=== PATIENT | male | born 1975 | race Two or more races ===

== ENCOUNTER 2025-04-09 12:40 | Emergency (ER) | payer OTHER ==
[~2025-04-09] VITALS: Ht 160 cm; Wt 93.2 kg
[2025-04-09 12:50] VITALS: BP 147/91; PULSE 80; RESP 18; TEMP 98.1; O2SAT 98
[2025-04-09 14:26] LABS: GLUCOMETER DEV NAME(LOC) ERT.7; GLUCOSE,POINT OF CARE 92 MG/DL (70-110)
[2025-04-09 15:05] LABS: ANION GAP 6 mmol/L (8-16); CALCIUM, TOTAL 8.5 mg/dL (8.8-10.5); CARBON DIOXIDE 30 mmol/L (22-29); CHLORIDE 101 mmol/L (98-107); CREATININE 0.68 mg/dL (0.60-1.30); GLOMERULAR FILTR. RATE CALC > 60 mL/min (>60); GLUCOSE,RANDOM 82 mg/dL (70-110); SODIUM SERUM 137 mmol/L (136-145); UREA NITROGEN, BLOOD 4 mg/dL (7-18)
[2025-04-09 15:06] LABS: LIPASE 46 U/L (16-77)
[2025-04-09] MEDS: KETOROLAC TROMETHAMINE 60 MG/2 ML VIAL IM ONE (15:07)
[2025-04-09] MEDS: methocarbamoL 500 MG TABLET PO ONE (15:07)
[2025-04-09] MEDS: ACETAMINOPHEN 500 MG TABLET PO ONE (15:07)
[2025-04-09 15:12] LABS: B-TYPE NATRIURETIC PEPTIDE 6 pg/mL (0-100)
[2025-04-09 15:17] LABS: BASOPHILS % (AUTO) 0.6 % (0.0-2.0); EOSINOPHILS % (AUTO) 1.9 % (1.0-6.0); HEMATOCRIT 43.7 % (41-53); HEMOGLOBIN 14.6 g/dL (13.5-17.5); LYMPHOCYTES # (AUTO) 1.9 K/uL (1.0-4.8); LYMPHOCYTES % (AUTO) 17.3 % (22.0-44.0); MEAN CORPUSCULAR HEMOGLOBIN 29.8 pg (26.0-34.0); MEAN CORPUSCULAR HGB CONC 33.3 G/dL (31.0-37.0); MEAN CORPUSCULAR VOLUME 89 fL (80-100); MONOCYTES # (AUTO) 1.3 K/uL (0.1-1.0); MONOCYTES % (AUTO) 11.6 % (2.0-9.0); NEUTROPHILS # (AUTO) 7.6 K/uL (1.8-7.7); NEUTROPHILS % (AUTO) 68.6 % (40.0-70.0); PLATELET COUNT (AUTO) 161 K/uL (150-450); RED CELL DISTRIBUTION WIDTH 14.2 % (11.5-14.5)
[2025-04-09 15:25] LABS: TROPONIN I-HIGH SENSITIVITY 4 ng/L (<76)
== END 2025-04-09 18:34 ==
LOC: EMS 12:40
DX: G89.29 Other chronic pain (principal); M54.50 Low back pain, unspecified; I10 Essential (primary) hypertension; J45.909 Unspecified asthma, uncomplicated; E11.40 Type 2 diabetes mellitus with diabetic neuropathy, unspecified; R06.02 Shortness of breath
CPT/HCPCS: 99285; 74176; 71045; 80048; 82962 ×2; 83690; 83880; 84484; 85025; 85651; 86140; 93005; 96372; J1885; 36415-L1; 36415-TC

== ENCOUNTER 2025-05-06 14:31 | Inpatient (IN) | payer OTHER ==
[~2025-05-06] VITALS: Ht 160 cm; Wt 88.8 kg
[2025-05-06 15:36] LABS: GLUCOMETER DEV NAME(LOC) ER.7; GLUCOSE,POINT OF CARE 89 MG/DL (70-110)
[2025-05-06 19:08] LABS: BASOPHILS % (AUTO) 0.5 % (0.0-2.0); EOSINOPHILS % (AUTO) 0.6 % (1.0-6.0); HEMATOCRIT 41.5 % (41-53); HEMOGLOBIN 14.1 g/dL (13.5-17.5); LYMPHOCYTES # (AUTO) 2.8 K/uL (1.0-4.8); LYMPHOCYTES % (AUTO) 24.4 % (22.0-44.0); MEAN CORPUSCULAR HEMOGLOBIN 29.9 pg (26.0-34.0); MEAN CORPUSCULAR VOLUME 88 fL (80-100); MONOCYTES # (AUTO) 0.9 K/uL (0.1-1.0); MONOCYTES % (AUTO) 7.8 % (2.0-9.0); NEUTROPHILS # (AUTO) 7.7 K/uL (1.8-7.7); NEUTROPHILS % (AUTO) 66.7 % (40.0-70.0); PLATELET COUNT (AUTO) 236 K/uL (150-450); RED BLOOD CELL COUNT(AUTO) 4.72 MIL/uL (4.50-5.90); RED CELL DISTRIBUTION WIDTH 13.8 % (11.5-14.5); WHITE BLOOD COUNT (AUTO) 11.5 K/uL (4.5-11.0)
[2025-05-06 19:18] LABS: ANION GAP 7 mmol/L (8-16); CALCIUM, TOTAL 9.3 mg/dL (8.8-10.5); CARBON DIOXIDE 28 mmol/L (22-29); CHLORIDE 102 mmol/L (98-107); CREATININE 0.68 mg/dL (0.60-1.30); GLOMERULAR FILTR. RATE CALC > 60 mL/min (>60); GLUCOSE,RANDOM 122 mg/dL (70-110); POTASSIUM 3.7 mmol/L (3.5-5.1); SODIUM SERUM 137 mmol/L (136-145); UREA NITROGEN, BLOOD 7 mg/dL (7-18)
[2025-05-06 19:20] LABS: LIPASE 68 U/L (16-77)
[2025-05-06 19:29] LABS: LACTIC ACID 1.7 mmol/L (0.4-2.0); TROPONIN I-HIGH SENSITIVITY 5 ng/L (<76)
[2025-05-06 20:40] LABS: APPEARANCE,URINE CLEAR (CLEAR); BILIRUBIN,URINE NEGATIVE (NEGATIVE); COLOR,URINE COLORLESS (YELLOW); GLUCOSE, URINE (UA) NEGATIVE (NEGATIVE); KETONES,URINE NEGATIVE (NEGATIVE); LEUKOCYTE ESTERASE ,URINE NEGATIVE (NEGATIVE); NITRATE,URINE NEGATIVE (NEGATIVE); OCCULT BLOOD,URINE NEGATIVE (NEGATIVE); PH,URINE 7.5 (5.0-8.0); PH,URINE DRUG SCREEN 7.5 (5.0-8.0); PROTEIN,URINE NEGATIVE (NEGATIVE); SPECIFIC GRAVITIY, URINE 1.008 (1.003-1.030); UROBILINOGEN,URINE <=1.0 mg/dL (<=1.0)
[2025-05-06 20:51] LABS: AMPHET/METH SCREEN,URINE NEGATIVE (NEGATIVE); BACTERIA,URINE None Seen /HPF (None Seen); BARBITURATE SCREEN, URINE NEGATIVE (NEGATIVE); BENZODIAZEPINES SCREEN,URINE NEGATIVE (NEGATIVE); CANNABINOID SCREEN,URINE NEGATIVE (NEGATIVE); COCAINE SCREEN,URINE NEGATIVE (NEGATIVE); METHADONE SCREEN, URINE NEGATIVE (NEGATIVE); OPIATE SCREEN,URINE NEGATIVE (NEGATIVE); PHENCYCLIDINE SCREEN,URINE NEGATIVE (NEGATIVE); RBC,URINE 0-2 /HPF (0-2); SQUAMOUS EPITHELIAL CELL,UR Rare /LPF (None Seen); WBC,URINE 0-2 /HPF (0-5)
[2025-05-06 20:52] LABS: ALCOHOL, URINE DRUG SCREEN NEGATIVE (NEGATIVE)
[2025-05-06] MEDS ORDERED: ONDANSETRON HCL 4 MG/2 ML VIAL IVP PRN (21:00)
[2025-05-06] MEDS ORDERED: DEXAMETHASONE SOD PHOS 4 MG/ML 5 ML VIAL IVP ONE (21:00)
[2025-05-06] MEDS: DOCUSATE SODIUM 100 MG CAPSULE PO SCH (21:00)
[2025-05-06 23:22] VITALS: BP 134/91; PULSE 91; RESP 18; TEMP 98.5; O2SAT 97
[2025-05-07] MEDS ORDERED: LEVE100S7 PO (00:45)
[2025-05-07] MEDS ORDERED: ARIP20TA PO (00:45)
[2025-05-07] MEDS ORDERED: DULO-77 PO (00:45)
[2025-05-07] MEDS ORDERED: AMLO-517 PO (00:45)
[2025-05-07] MEDS ORDERED: LEVA15HF3 PO (00:45)
[2025-05-07] MEDS ORDERED: SIME80TA12 PO (00:45)
[2025-05-07] MEDS ORDERED: ACET650S14 PR (00:45)
[2025-05-07] MEDS ORDERED: TAMS0.4C94 PO (00:45)
[2025-05-07] MEDS ORDERED: ATOR10TA69 PO (00:45)
[2025-05-07] MEDS ORDERED: EMPA10TA3 PO (00:45)
[2025-05-07] MEDS ORDERED: IBUP-2492 PO (00:45)
[2025-05-07] MEDS ORDERED: METF-81 PO (00:45)
[2025-05-07] MEDS ORDERED: MIRT-149 PO (00:45)
[2025-05-07] MEDS ORDERED: FAMO20 PO (00:45)
[2025-05-07] MEDS ORDERED: INSREG SQ (00:45)
[2025-05-07] MEDS ORDERED: LIDO15CR15 TP (00:45)
[2025-05-07] MEDS ORDERED: SEMA2PEN SQ (00:45)
[2025-05-07] MEDS ORDERED: LACO100T14 PO ×2 (00:45)
[2025-05-07] MEDS: HEPARIN SODIUM,PORCINE 5,000 UNITS/ML VIAL SQ SCH (01:14)
[2025-05-07] MEDS: DEXAMETHASONE SOD PHOS 10 MG/ML VIAL IVP ONE (01:15)
[2025-05-07 05:08] VITALS: BP 121/78; PULSE 86; RESP 18; TEMP 98.6; O2SAT 99
[2025-05-07] MEDS ORDERED: SIMETHICONE 80 MG CHEWABLE TABLET PO PRN (06:15)
[2025-05-07] MEDS ORDERED: DEXTROSE 50%-WATER 25 GM/50 ML SYRINGE IVP PRN (06:15)
[2025-05-07] MEDS: INSULIN LISPRO 100 UNITS/ML SQ PRN (06:19)
[2025-05-07] MEDS: SODIUM CHLORIDE 0.9% 1,000 ML IV ONE (06:19)
[2025-05-07 07:03] LABS: ANION GAP 7 mmol/L (8-16); CARBON DIOXIDE 25 mmol/L (22-29); CHLORIDE 102 mmol/L (98-107); GLOMERULAR FILTR. RATE CALC > 60 mL/min (>60); GLUCOSE,RANDOM 293 mg/dL (70-110); POTASSIUM 4.1 mmol/L (3.5-5.1); SODIUM SERUM 134 mmol/L (136-145); UREA NITROGEN, BLOOD 9 mg/dL (7-18)
[2025-05-07 07:15] LABS: BASOPHILS % (AUTO) 0.4 % (0.0-2.0); EOSINOPHILS % (AUTO) 0 % (1.0-6.0); HEMATOCRIT 41.9 % (41-53); HEMOGLOBIN 14.4 g/dL (13.5-17.5); LYMPHOCYTES # (AUTO) 0.6 K/uL (1.0-4.8); LYMPHOCYTES % (AUTO) 7.5 % (22.0-44.0); MEAN CORPUSCULAR HEMOGLOBIN 30.5 pg (26.0-34.0); MEAN CORPUSCULAR HGB CONC 34.4 G/dL (31.0-37.0); MEAN CORPUSCULAR VOLUME 89 fL (80-100); MONOCYTES # (AUTO) 0.2 K/uL (0.1-1.0); MONOCYTES % (AUTO) 1.9 % (2.0-9.0); NEUTROPHILS # (AUTO) 7.6 K/uL (1.8-7.7); PLATELET COUNT (AUTO) 221 K/uL (150-450); RED BLOOD CELL COUNT(AUTO) 4.73 MIL/uL (4.50-5.90); RED CELL DISTRIBUTION WIDTH 13.6 % (11.5-14.5); WHITE BLOOD COUNT (AUTO) 8.5 K/uL (4.5-11.0)
[2025-05-07 07:23] LABS: NEUTROPHILS % (AUTO) 90.2 % (40.0-70.0); RBC MORPHOLOGY COMMENT NORMAL RBC MORPH
[2025-05-07] MEDS: PIPERACILLIN/TAZO 3.375 GM/D5W 50 ML IV SCH (07:45)
[2025-05-07] MEDS: VANCOMYCIN 1.5 GM/WATER(PEG) 300 ML IV ONE (07:45)
[2025-05-07 08:41] VITALS: BP 139/88; PULSE 76; RESP 19; TEMP 97.5; O2SAT 98
[2025-05-07] MEDS: TAMSULOSIN HCL 0.4 MG CAPSULE PO SCH (09:00)
[2025-05-07] MEDS: ATORVASTATIN CALCIUM 10 MG TABLET PO SCH (09:00)
[2025-05-07] MEDS: LevETIRAcetam 500 MG TABLET PO SCH (09:00)
[2025-05-07] MEDS: AmLODIPine BESYLATE 10 MG TABLET PO SCH (09:02)
[2025-05-07] MEDS: OLMESARTAN MEDOXOMIL 20 MG TABLET PO SCH (09:03)
[2025-05-07] MEDS: LACOSAMIDE 100 MG TABLET PO SCH ×2 (09:03→16:32)
[2025-05-07] MEDS ORDERED: DULO30CA89 PO (10:55)
[2025-05-07] MEDS ORDERED: ACET-2247 PO (10:57)
[2025-05-07] MEDS: DULoxetine HCL 30 MG CAPSULE PO SCH (11:00)
[2025-05-07 11:23] VITALS: BP 128/74; PULSE 78; RESP 18; TEMP 98.1; O2SAT 97
[2025-05-07 11:26] LABS: GLUCOMETER DEV NAME(LOC) 5S.1D; GLUCOSE,POINT OF CARE 284 MG/DL (70-110)
[2025-05-07 12:45] LABS: GLUCOMETER DEV NAME(LOC) 5N.2C; GLUCOSE,POINT OF CARE 323 MG/DL (70-110)
[2025-05-07] MEDS: INSULIN LISPRO 100 UNITS/ML SQ SCH (13:14)
[2025-05-07 15:52] VITALS: BP 132/80; PULSE 74; RESP 19; TEMP 98.2; O2SAT 98
[2025-05-07] MEDS ORDERED: VANCOMYCIN 1.25 GM/WATER(PEG) 250 ML IV SCH (16:00)
[2025-05-07 18:25] LABS: GLUCOMETER DEV NAME(LOC) 5S.1D; GLUCOSE,POINT OF CARE 317 MG/DL (70-110)
[2025-05-07 20:33] VITALS: BP 133/75; PULSE 83; RESP 18; TEMP 97.5; O2SAT 99
[2025-05-07] MEDS: MIRTAZAPINE 15 MG TABLET PO SCH (20:39)
[2025-05-07] MEDS: INSULIN GLARGINE,HUM.REC.ANLOG 100 UNITS/ML SQ SCH (21:00)
[2025-05-08 00:20] VITALS: BP 122/82; PULSE 81; RESP 18; TEMP 98; O2SAT 99
[2025-05-08 04:00] VITALS: BP 126/87; PULSE 83; RESP 18; TEMP 97.7; O2SAT 98
[2025-05-08 05:36] LABS: GLUCOMETER DEV NAME(LOC) 5N.2C; GLUCOSE,POINT OF CARE 303 MG/DL (70-110)
[2025-05-08 06:40] LABS: GLUCOMETER DEV NAME(LOC) 5S.1D; GLUCOSE,POINT OF CARE 281 MG/DL (70-110)
[2025-05-08 07:31] LABS: ANION GAP 8 mmol/L (8-16); CALCIUM, TOTAL 9.1 mg/dL (8.8-10.5); CARBON DIOXIDE 26 mmol/L (22-29); CHLORIDE 103 mmol/L (98-107); CREATININE 0.74 mg/dL (0.60-1.30); GLOMERULAR FILTR. RATE CALC > 60 mL/min (>60); GLUCOSE,RANDOM 280 mg/dL (70-110); POTASSIUM 4.3 mmol/L (3.5-5.1); SODIUM SERUM 137 mmol/L (136-145); UREA NITROGEN, BLOOD 12 mg/dL (7-18)
[2025-05-08 08:40] VITALS: BP 127/86; PULSE 77; RESP 18; TEMP 98.1; O2SAT 97
[2025-05-08 09:44] LABS: PROTHROMBIN TIME 10.8 SEC (9.4-11.6)
[2025-05-08] MEDS ORDERED: MIDAZOLAM HCL 2 MG/2 ML VIAL ONE ×2 (09:46→10:14)
[2025-05-08] MEDS ORDERED: FentaNYL CITRATE PF 100 MCG/2 ML VIAL ONE ×2 (09:46→10:14)
[2025-05-08] MEDS ORDERED: LIDOCAINE/PF 1% 30 ML VIAL ONE (09:47)
[2025-05-08] MEDS ORDERED: DiphenhydrAMINE HCL 50 MG/ML VIAL ONE (10:18)
[2025-05-08 11:46] VITALS: BP 105/73; PULSE 80; RESP 18; TEMP 97.7; O2SAT 97
[2025-05-08] MEDS: DiphenhydrAMINE HCL 50 MG/ML VIAL IVP ONE (11:46)
[2025-05-08] MEDS: FentaNYL CITRATE PF 100 MCG/2 ML VIAL IVP ONE ×3 (11:46→11:48)
[2025-05-08] MEDS: MIDAZOLAM HCL 2 MG/2 ML VIAL IVP ONE ×3 (11:47→11:48)
[2025-05-08 13:41] LABS: GLUCOMETER DEV NAME(LOC) 5N.2C; GLUCOSE,POINT OF CARE 106 MG/DL (70-110)
[2025-05-08 16:27] VITALS: BP 105/68; PULSE 97; RESP 18; TEMP 98.2; O2SAT 96
[2025-05-08 20:17] VITALS: BP 124/80; PULSE 96; RESP 19; TEMP 98.6; O2SAT 95
[2025-05-08 21:56] LABS: GLUCOMETER DEV NAME(LOC) 5N.2C; GLUCOSE,POINT OF CARE 385 MG/DL (70-110)
[2025-05-08 22:51] LABS: GLUCOMETER DEV NAME(LOC) 5S.1D; GLUCOSE,POINT OF CARE 347 MG/DL (70-110)
[2025-05-09] MEDS: ACETAMINOPHEN 325 MG TABLET PO PRN (00:37)
[2025-05-09 00:47] VITALS: BP 113/63; PULSE 104; RESP 20; TEMP 98.4; O2SAT 96
[2025-05-09 06:04] VITALS: BP 130/72; PULSE 76; RESP 20; TEMP 98.1; O2SAT 97
[2025-05-09 07:17] LABS: ANION GAP 7 mmol/L (8-16); CALCIUM, TOTAL 8.6 mg/dL (8.8-10.5); CARBON DIOXIDE 26 mmol/L (22-29); CHLORIDE 102 mmol/L (98-107); CREATININE 0.74 mg/dL (0.60-1.30); GLOMERULAR FILTR. RATE CALC > 60 mL/min (>60); GLUCOSE,RANDOM 298 mg/dL (70-110); POTASSIUM 4.1 mmol/L (3.5-5.1); SODIUM SERUM 135 mmol/L (136-145); UREA NITROGEN, BLOOD 14 mg/dL (7-18)
[2025-05-09] MEDS: AmLODIPine BESYLATE 5 MG TABLET PO SCH (08:16)
[2025-05-09 08:56] VITALS: BP 120/79; PULSE 90; RESP 19; TEMP 97.5; O2SAT 98
[2025-05-09 11:39] VITALS: BP 115/78; PULSE 82; RESP 19; TEMP 98.2; O2SAT 98
[2025-05-09 11:46] LABS: GLUCOMETER DEV NAME(LOC) 5N.2C; GLUCOSE,POINT OF CARE 278 MG/DL (70-110)
[2025-05-09 15:55] VITALS: BP 117/74; PULSE 90; RESP 20; TEMP 98.4; O2SAT 99
[2025-05-09 17:26] LABS: GLUCOMETER DEV NAME(LOC) 5S.1D; GLUCOSE,POINT OF CARE 298 MG/DL (70-110)
[2025-05-09 20:00] VITALS: BP 115/85; PULSE 85; RESP 19; TEMP 98.4; O2SAT 100
[2025-05-09 20:20] LABS: GLUCOMETER DEV NAME(LOC) 5N.2C; GLUCOSE,POINT OF CARE 246 MG/DL (70-110)
[2025-05-10] VITALS (7 sets, daily range): BP systolic 111–140; BP diastolic 67–92; PULSE 79–92; RESP 18–20; TEMP 98.2–99.5; O2SAT 95–100
[2025-05-10 04:51] LABS: GLUCOMETER DEV NAME(LOC) 5S.1D; GLUCOSE,POINT OF CARE 267 MG/DL (70-110)
[2025-05-10 07:46] LABS: GLUCOMETER DEV NAME(LOC) 5N.2C; GLUCOSE,POINT OF CARE 248 MG/DL (70-110)
[2025-05-10 11:26] LABS: GLUCOMETER DEV NAME(LOC) 5N.2C; GLUCOSE,POINT OF CARE 287 MG/DL (70-110)
[2025-05-10 11:56] LABS: GLUCOMETER DEV NAME(LOC) 5S.2D; GLUCOSE,POINT OF CARE 415 MG/DL (70-110)
[2025-05-10] MEDS ORDERED: BISMUTH SUBSALICYLATE 525 MG/30 ML SUSPENSION UDCUP PO PRN (14:45)
[2025-05-10 17:35] LABS: GLUCOMETER DEV NAME(LOC) 5S.1D; GLUCOSE,POINT OF CARE 400 MG/DL (70-110)
[2025-05-10] MEDS: INSULIN GLARGINE,HUM.REC.ANLOG 100 UNITS/ML SQ SCH (20:59)
[2025-05-11] VITALS: BP 134/85; PULSE 86; RESP 18; TEMP 98.4; O2SAT 99
[2025-05-11 04:00] VITALS: BP 125/81; PULSE 82; RESP 18; TEMP 98.2; O2SAT 99
[2025-05-11 06:25] LABS: GLUCOMETER DEV NAME(LOC) 5S.1D; GLUCOSE,POINT OF CARE 324 MG/DL (70-110)
[2025-05-11 08:20] LABS: GLUCOMETER DEV NAME(LOC) 5S.2D; GLUCOSE,POINT OF CARE 268 MG/DL (70-110)
[2025-05-11 08:20] LABS: GLUCOMETER DEV NAME(LOC) 5S.2D; GLUCOSE,POINT OF CARE 371 MG/DL (70-110)
[2025-05-11 09:24] VITALS: BP 146/100; PULSE 85; RESP 18; TEMP 98.1; O2SAT 95
[2025-05-11 11:56] LABS: GLUCOMETER DEV NAME(LOC) 5S.1D; GLUCOSE,POINT OF CARE 309 MG/DL (70-110)
[2025-05-11 17:26] LABS: GLUCOMETER DEV NAME(LOC) 5N.2C; GLUCOSE,POINT OF CARE 268 MG/DL (70-110)
[2025-05-11 19:58] VITALS: BP 130/82; PULSE 99; RESP 18; TEMP 98.2; O2SAT 95
[2025-05-11] MEDS: INSULIN GLARGINE,HUM.REC.ANLOG 100 UNITS/ML SQ SCH (20:19)
[2025-05-12] VITALS (8 sets, daily range): BP systolic 122–147; BP diastolic 79–89; PULSE 64–91; RESP 17–19; TEMP 97.3–98.4; O2SAT 95–100
[2025-05-12 02:26] LABS: GLUCOMETER DEV NAME(LOC) 5S.2D; GLUCOSE,POINT OF CARE 333 MG/DL (70-110)
[2025-05-12 06:55] LABS: BASOPHILS % (AUTO) 0.5 % (0.0-2.0); EOSINOPHILS % (AUTO) 2.3 % (1.0-6.0); HEMATOCRIT 42.9 % (41-53); HEMOGLOBIN 14.8 g/dL (13.5-17.5); LYMPHOCYTES # (AUTO) 2.6 K/uL (1.0-4.8); LYMPHOCYTES % (AUTO) 25.8 % (22.0-44.0); MEAN CORPUSCULAR HEMOGLOBIN 30.4 pg (26.0-34.0); MEAN CORPUSCULAR HGB CONC 34.5 G/dL (31.0-37.0); MEAN CORPUSCULAR VOLUME 88 fL (80-100); MONOCYTES # (AUTO) 0.8 K/uL (0.1-1.0); MONOCYTES % (AUTO) 7.6 % (2.0-9.0); NEUTROPHILS # (AUTO) 6.5 K/uL (1.8-7.7); NEUTROPHILS % (AUTO) 63.8 % (40.0-70.0); PLATELET COUNT (AUTO) 205 K/uL (150-450); RED BLOOD CELL COUNT(AUTO) 4.87 MIL/uL (4.50-5.90); RED CELL DISTRIBUTION WIDTH 13.4 % (11.5-14.5); WHITE BLOOD COUNT (AUTO) 10.2 K/uL (4.5-11.0)
[2025-05-12] MEDS: LIDOCAINE 5% 36 GM OINTMENT TP PRN (08:32)
[2025-05-12 10:56] LABS: GLUCOMETER DEV NAME(LOC) 5S.1D; GLUCOSE,POINT OF CARE 237 MG/DL (70-110)
[2025-05-12 11:21] LABS: GLUCOMETER DEV NAME(LOC) 5S.1D; GLUCOSE,POINT OF CARE 355 MG/DL (70-110)
[2025-05-12 12:31] LABS: GLUCOMETER DEV NAME(LOC) 5N.2C; GLUCOSE,POINT OF CARE 272 MG/DL (70-110)
[2025-05-12 17:26] LABS: GLUCOMETER DEV NAME(LOC) 5S.1D; GLUCOSE,POINT OF CARE 151 MG/DL (70-110)
[2025-05-12] MEDS: INSULIN GLARGINE,HUM.REC.ANLOG 100 UNITS/ML SQ SCH (21:06)
[2025-05-12] MEDS: HYDROCODONE/ACETAMINOPHEN 5-325 MG TABLET PO ONE (23:21)
[2025-05-13 03:55] VITALS: BP 124/83; PULSE 80; RESP 18; TEMP 98.2; O2SAT 98
[2025-05-13 05:41] LABS: GLUCOMETER DEV NAME(LOC) 5S.2D; GLUCOSE,POINT OF CARE 350 MG/DL (70-110)
[2025-05-13 07:59] VITALS: BP 120/88; PULSE 81; RESP 18; TEMP 97.7; O2SAT 98
[2025-05-13 08:11] LABS: GLUCOMETER DEV NAME(LOC) 5S.2D; GLUCOSE,POINT OF CARE 191 MG/DL (70-110)
[2025-05-13 08:11] LABS: GLUCOMETER DEV NAME(LOC) 5S.2D; GLUCOSE,POINT OF CARE 260 MG/DL (70-110)
[2025-05-13 10:49] LABS: ANION GAP 9 mmol/L (8-16); CALCIUM, TOTAL 9.1 mg/dL (8.8-10.5); CARBON DIOXIDE 27 mmol/L (22-29); CHLORIDE 97 mmol/L (98-107); CREATININE 0.67 mg/dL (0.60-1.30); GLOMERULAR FILTR. RATE CALC > 60 mL/min (>60); GLUCOSE,RANDOM 312 mg/dL (70-110); POTASSIUM 4.2 mmol/L (3.5-5.1); SODIUM SERUM 133 mmol/L (136-145); UREA NITROGEN, BLOOD 12 mg/dL (7-18)
[2025-05-13 19:54] VITALS: BP 135/89; PULSE 91; RESP 18; TEMP 98.2; O2SAT 95
[2025-05-13] MEDS: MORPHINE SULFATE 2 MG/ML SYRINGE IVP ONE (20:27)
[2025-05-13 20:53] LABS: TROPONIN I-HIGH SENSITIVITY Less Than 4 ng/L (<76)
[2025-05-13] MEDS ORDERED: INSULIN GLARGINE,HUM.REC.ANLOG 100 UNITS/ML SQ SCH (21:00)
[2025-05-13] MEDS: MIRTAZAPINE 15 MG TABLET PO SCH (21:00)
[2025-05-13] MEDS: INSULIN GLARGINE,HUM.REC.ANLOG 100 UNITS/ML SQ SCH (21:03)
[2025-05-14] VITALS (7 sets, daily range): BP systolic 127–142; BP diastolic 76–97; PULSE 80–101; RESP 17–19; TEMP 97.5–98.4; O2SAT 95–99
[2025-05-14 05:46] LABS: GLUCOMETER DEV NAME(LOC) 5S.1D; GLUCOSE,POINT OF CARE 296 MG/DL (70-110)
[2025-05-14 10:11] LABS: GLUCOMETER DEV NAME(LOC) 5S.1D; GLUCOSE,POINT OF CARE 323 MG/DL (70-110)
[2025-05-14 12:35] LABS: GLUCOMETER DEV NAME(LOC) 5S.2D; GLUCOSE,POINT OF CARE 254 MG/DL (70-110)
[2025-05-14] MEDS: KETOROLAC TROMETHAMINE 15 MG/ML VIAL IVP PRN (12:51)
[2025-05-14 19:05] LABS: GLUCOMETER DEV NAME(LOC) 5S.1D; GLUCOSE,POINT OF CARE 302 MG/DL (70-110)
[2025-05-14] MEDS: INSULIN GLARGINE,HUM.REC.ANLOG 100 UNITS/ML SQ SCH (20:22)
[2025-05-14] MEDS: CYCLOBENZAPRINE HCL 10 MG TABLET PO PRN (22:25)
[2025-05-15 01:21] LABS: GLUCOMETER DEV NAME(LOC) 6N.2B; GLUCOSE,POINT OF CARE 273 MG/DL (70-110)
[2025-05-15 04:38] VITALS: BP 131/85; PULSE 100; RESP 20; TEMP 98.1; O2SAT 100
[2025-05-15 06:40] LABS: GLUCOMETER DEV NAME(LOC) 6S.1D; GLUCOSE,POINT OF CARE 218 MG/DL (70-110)
[2025-05-15 08:08] VITALS: BP 113/89; PULSE 99; RESP 18; TEMP 99; O2SAT 100
[2025-05-15] MEDS ORDERED: MIDAZOLAM HCL 2 MG/2 ML VIAL ONE (08:54)
[2025-05-15] MEDS ORDERED: LIDOCAINE/PF 1% 30 ML VIAL ONE (08:54)
[2025-05-15] MEDS ORDERED: FentaNYL CITRATE PF 100 MCG/2 ML VIAL ONE (08:54)
[2025-05-15] MEDS: TraMADol HCL 50 MG TABLET PO PRN (11:38)
[2025-05-15] MEDS ORDERED: ALBUTEROL SULFATE HFA 90 MCG/PUFF 8 GM INHALER IH PRN (12:30)
[2025-05-15] MEDS: CefTRIAXone SODIUM 2 GM in DEXTROSE 5%-WATER 50 ML IV SCH (15:32)
[2025-05-15] MEDS ORDERED: SODIUM CHLORIDE 0.9% 500 ML IV ONE (15:33)
[2025-05-15] MEDS: VANCOMYCIN 1.25 GM/WATER(PEG) 250 ML IV SCH (17:03)
[2025-05-15] MEDS: MetFORMIN HCL 850 MG TABLET PO SCH (18:06)
[2025-05-15 19:56] VITALS: BP 128/90; PULSE 94; RESP 18; TEMP 98.1; O2SAT 98
[2025-05-15 21:05] LABS: GLUCOMETER DEV NAME(LOC) 6S.1D; GLUCOSE,POINT OF CARE 303 MG/DL (70-110)
[2025-05-16 04:33] VITALS: BP 124/84; PULSE 86; RESP 18; TEMP 98; O2SAT 97
[2025-05-16 07:02] LABS: ALANINE AMINOTRANSFERASE 24 U/L (12-78); ALBUMIN 3.1 g/dL (3.4-5.0); ALKALINE PHOSPHATASE 97 U/L (46-116); ANION GAP 7 mmol/L (8-16); ASPARTATE AMINOTRANSFERASE 15 U/L (15-37); BILIRUBIN,TOTAL 0.5 mg/dL (0.1-1.0); CALCIUM, TOTAL 9.2 mg/dL (8.8-10.5); CARBON DIOXIDE 28 mmol/L (22-29); CHLORIDE 100 mmol/L (98-107); GLOMERULAR FILTR. RATE CALC > 60 mL/min (>60); GLUCOSE,RANDOM 167 mg/dL (70-110); POTASSIUM 4.2 mmol/L (3.5-5.1); SODIUM SERUM 135 mmol/L (136-145); TOTAL PROTEIN, SERUM 7.4 g/dL (6.4-8.2); UREA NITROGEN, BLOOD 12 mg/dL (7-18)
[2025-05-16 08:00] VITALS: BP 115/88; PULSE 85; RESP 19; TEMP 98.2; O2SAT 100
[2025-05-16 08:21] LABS: GLUCOMETER DEV NAME(LOC) 6S.1D; GLUCOSE,POINT OF CARE 187 MG/DL (70-110)
[2025-05-16] MEDS ORDERED: 0.9% SODIUM CHLORIDE 10 ML SYRINGE IVP PRN (12:00)
[2025-05-16] MEDS ORDERED: LIDOCAINE 1% 10 ML VIAL SQ ONE (12:00)
[2025-05-16] MEDS: TraMADol HCL 50 MG TABLET PO PRN (16:57)
[2025-05-16 20:06] VITALS: BP 117/83; PULSE 91; RESP 18; TEMP 97.7; O2SAT 98
[2025-05-16 20:25] LABS: GLUCOMETER DEV NAME(LOC) 6S.2; GLUCOSE,POINT OF CARE 231 MG/DL (70-110)
[2025-05-16] MEDS: LACTOBAC ACID/BULG/BIFID/THERM TABLET PO SCH (20:30)
[2025-05-17 04:23] VITALS: BP 110/78; PULSE 80; RESP 18; O2SAT 94
[2025-05-17 05:16] LABS: GLUCOMETER DEV NAME(LOC) 6S.2; GLUCOSE,POINT OF CARE 254 MG/DL (70-110)
[2025-05-17 08:45] VITALS: BP 119/83; PULSE 78; RESP 18; TEMP 97.7; O2SAT 98
[2025-05-17 15:24] LABS: ANION GAP 4 mmol/L (8-16); CARBON DIOXIDE 29 mmol/L (22-29); CHLORIDE 98 mmol/L (98-107); CREATININE 0.97 mg/dL (0.60-1.30); GLOMERULAR FILTR. RATE CALC > 60 mL/min (>60); GLUCOSE,RANDOM 190 mg/dL (70-110); POTASSIUM 4.2 mmol/L (3.5-5.1); SODIUM SERUM 131 mmol/L (136-145); UREA NITROGEN, BLOOD 9 mg/dL (7-18)
[2025-05-17 18:36] LABS: GLUCOMETER DEV NAME(LOC) 6S.2; GLUCOSE,POINT OF CARE 221 MG/DL (70-110)
[2025-05-17 18:36] LABS: GLUCOMETER DEV NAME(LOC) 6S.2; GLUCOSE,POINT OF CARE 182 MG/DL (70-110)
[2025-05-17 18:46] LABS: GLUCOMETER DEV NAME(LOC) 6S.1D; GLUCOSE,POINT OF CARE 174 MG/DL (70-110)
[2025-05-17 20:19] VITALS: BP 117/63; PULSE 86; RESP 20; TEMP 98.1; O2SAT 97
[2025-05-18 03:49] VITALS: BP 112/71; PULSE 84; RESP 20; TEMP 98.1; O2SAT 97
[2025-05-18 08:20] LABS: ANION GAP 9 mmol/L (8-16); CALCIUM, TOTAL 8.8 mg/dL (8.8-10.5); CARBON DIOXIDE 26 mmol/L (22-29); CHLORIDE 99 mmol/L (98-107); GLOMERULAR FILTR. RATE CALC > 60 mL/min (>60); GLUCOSE,RANDOM 150 mg/dL (70-110); SODIUM SERUM 134 mmol/L (136-145); UREA NITROGEN, BLOOD 12 mg/dL (7-18)
[2025-05-18 08:34] VITALS: BP 127/87; PULSE 78; RESP 20; TEMP 97.3; O2SAT 98
[2025-05-18 10:25] LABS: BASOPHILS % (AUTO) 0.9 % (0.0-2.0); EOSINOPHILS % (AUTO) 1.6 % (1.0-6.0); HEMATOCRIT 40.1 % (41-53); HEMOGLOBIN 13.8 g/dL (13.5-17.5); LYMPHOCYTES # (AUTO) 2.6 K/uL (1.0-4.8); LYMPHOCYTES % (AUTO) 24.2 % (22.0-44.0); MEAN CORPUSCULAR HEMOGLOBIN 30.2 pg (26.0-34.0); MEAN CORPUSCULAR HGB CONC 34.4 G/dL (31.0-37.0); MEAN CORPUSCULAR VOLUME 88 fL (80-100); MONOCYTES # (AUTO) 0.9 K/uL (0.1-1.0); MONOCYTES % (AUTO) 8.4 % (2.0-9.0); NEUTROPHILS # (AUTO) 6.9 K/uL (1.8-7.7); NEUTROPHILS % (AUTO) 64.9 % (40.0-70.0); PLATELET COUNT (AUTO) 193 K/uL (150-450); RED BLOOD CELL COUNT(AUTO) 4.56 MIL/uL (4.50-5.90); RED CELL DISTRIBUTION WIDTH 13.2 % (11.5-14.5); WHITE BLOOD COUNT (AUTO) 10.7 K/uL (4.5-11.0)
[2025-05-18 13:16] LABS: GLUCOMETER DEV NAME(LOC) 6N.2B; GLUCOSE,POINT OF CARE 185 MG/DL (70-110)
[2025-05-18 13:16] LABS: GLUCOMETER DEV NAME(LOC) 6S.2; GLUCOSE,POINT OF CARE 215 MG/DL (70-110)
[2025-05-18 13:16] LABS: GLUCOMETER DEV NAME(LOC) 6N.2B; GLUCOSE,POINT OF CARE 193 MG/DL (70-110)
[2025-05-18 17:21] LABS: GLUCOMETER DEV NAME(LOC) 6N.2B; GLUCOSE,POINT OF CARE 211 MG/DL (70-110)
[2025-05-18 21:02] VITALS: BP 130/88; PULSE 90; RESP 18; TEMP 97.9; O2SAT 98
[2025-05-18 22:31] LABS: GLUCOMETER DEV NAME(LOC) 6N.2B; GLUCOSE,POINT OF CARE 258 MG/DL (70-110)
[2025-05-19 03:45] VITALS: BP 131/80; PULSE 83; RESP 19; TEMP 97.3; O2SAT 97
[2025-05-19 08:06] LABS: GLUCOMETER DEV NAME(LOC) 6S.1D; GLUCOSE,POINT OF CARE 209 MG/DL (70-110)
[2025-05-19 08:11] LABS: ANION GAP 7 mmol/L (8-16); CARBON DIOXIDE 27 mmol/L (22-29); CHLORIDE 100 mmol/L (98-107); CREATININE 0.67 mg/dL (0.60-1.30); GLOMERULAR FILTR. RATE CALC > 60 mL/min (>60); GLUCOSE,RANDOM 151 mg/dL (70-110); POTASSIUM 3.9 mmol/L (3.5-5.1); SODIUM SERUM 134 mmol/L (136-145); UREA NITROGEN, BLOOD 10 mg/dL (7-18)
[2025-05-19 08:39] VITALS: BP 126/85; PULSE 80; RESP 20; TEMP 97.7; O2SAT 97
[2025-05-19 14:01] LABS: GLUCOMETER DEV NAME(LOC) 6S.1D; GLUCOSE,POINT OF CARE 176 MG/DL (70-110)
[2025-05-19 17:56] LABS: GLUCOMETER DEV NAME(LOC) 6S.2; GLUCOSE,POINT OF CARE 173 MG/DL (70-110)
[2025-05-19 19:50] VITALS: BP 126/80; PULSE 87; RESP 18; TEMP 98.2; O2SAT 97
[2025-05-19] MEDS: MIRTAZAPINE 30 MG TABLET PO SCH (21:00)
[2025-05-20 01:21] LABS: GLUCOMETER DEV NAME(LOC) 6S.1D; GLUCOSE,POINT OF CARE 271 MG/DL (70-110)
[2025-05-20 01:25] LABS: GLUCOMETER DEV NAME(LOC) 6S.2; GLUCOSE,POINT OF CARE 232 MG/DL (70-110)
[2025-05-20 04:48] VITALS: BP 125/85; PULSE 81; RESP 18; TEMP 97.3; O2SAT 97
[2025-05-20] MEDS: INSULIN GLARGINE,HUM.REC.ANLOG 100 UNITS/ML SQ SCH (08:04)
[2025-05-20 08:26] VITALS: BP 132/87; PULSE 78; RESP 18; TEMP 97.9; O2SAT 95
[2025-05-20 11:59] LABS: ANION GAP 9 mmol/L (8-16); CALCIUM, TOTAL 8.8 mg/dL (8.8-10.5); CARBON DIOXIDE 26 mmol/L (22-29); CHLORIDE 98 mmol/L (98-107); CREATININE 0.69 mg/dL (0.60-1.30); GLOMERULAR FILTR. RATE CALC > 60 mL/min (>60); GLUCOSE,RANDOM 197 mg/dL (70-110); SODIUM SERUM 133 mmol/L (136-145); UREA NITROGEN, BLOOD 9 mg/dL (7-18)
[2025-05-20 12:00] LABS: GLUCOMETER DEV NAME(LOC) 6S.2; GLUCOSE,POINT OF CARE 207 MG/DL (70-110)
[2025-05-20 19:53] VITALS: BP 100/78; PULSE 99; RESP 20; TEMP 98.4; O2SAT 97
[2025-05-20 20:50] LABS: GLUCOMETER DEV NAME(LOC) 6S.1D; GLUCOSE,POINT OF CARE 195 MG/DL (70-110)
[2025-05-20 23:51] LABS: GLUCOMETER DEV NAME(LOC) 6S.2; GLUCOSE,POINT OF CARE 163 MG/DL (70-110)
[2025-05-21 04:17] VITALS: BP 107/72; PULSE 87; RESP 18; TEMP 97.9; O2SAT 96
[2025-05-21 08:11] VITALS: BP 110/77; PULSE 78; RESP 18; TEMP 98.2; O2SAT 97
[2025-05-21 08:46] LABS: GLUCOMETER DEV NAME(LOC) 6S.1D; GLUCOSE,POINT OF CARE 176 MG/DL (70-110)
[2025-05-21] MEDS: ARIPiprazole 10 MG TABLET PO PRN (09:24)
[2025-05-21 10:24] LABS: ANION GAP 8 mmol/L (8-16); CALCIUM, TOTAL 9.1 mg/dL (8.8-10.5); CARBON DIOXIDE 28 mmol/L (22-29); CHLORIDE 98 mmol/L (98-107); CREATININE 0.68 mg/dL (0.60-1.30); GLOMERULAR FILTR. RATE CALC > 60 mL/min (>60); GLUCOSE,RANDOM 206 mg/dL (70-110); POTASSIUM 4.1 mmol/L (3.5-5.1); SODIUM SERUM 134 mmol/L (136-145); UREA NITROGEN, BLOOD 9 mg/dL (7-18)
[2025-05-21] MEDS ORDERED: CEFT2VIA60 IM (14:04)
[2025-05-22 02:05] LABS: GLUCOMETER DEV NAME(LOC) 6S.2; GLUCOSE,POINT OF CARE 191 MG/DL (70-110)
[2025-05-22 08:15] LABS: GLUCOMETER DEV NAME(LOC) 6S.1D; GLUCOSE,POINT OF CARE 155 MG/DL (70-110)
== END 2025-05-21 21:05 | DRG 478 ==
LOC: EMS 14:31 → EDH 20:52 → 5S 22:30 → 6N 05-14 18:30
PROVIDERS: ADMIT Internal Medicine; ATTEND Internal Medicine
PROC: 0QB03ZX Excision of Lumbar Vertebra, Percutaneous Approach, Diagnostic (ICD-10-PCS; principal; 2025-05-08)
PROC: 02HV33Z Insertion of Infusion Device into Superior Vena Cava, Percutaneous Approach (ICD-10-PCS; 2025-05-16)
PROC: B548ZZA Ultrasonography of Superior Vena Cava, Guidance (ICD-10-PCS; 2025-05-16)
DX: M46.46 Discitis, unspecified, lumbar region (principal); M46.26 Osteomyelitis of vertebra, lumbar region; G40.909 Epilepsy, unspecified, not intractable, without status epilepticus; I10 Essential (primary) hypertension; R53.1 Weakness; E11.65 Type 2 diabetes mellitus with hyperglycemia; E11.69 Type 2 diabetes mellitus with other specified complication; G89.29 Other chronic pain; F99 Mental disorder, not otherwise specified; E66.01 Morbid (severe) obesity due to excess calories; J45.909 Unspecified asthma, uncomplicated; T38.3X6A Underdosing of insulin and oral hypoglycemic [antidiabetic] drugs, initial encounter; Z68.34 Body mass index [BMI] 34.0-34.9, adult; Z91.190 Patient's noncompliance with other medical treatment and regimen due to financial hardship; Z79.4 Long term (current) use of insulin; Y92.89 Other specified places as the place of occurrence of the external cause; Z91.148 Patient's other noncompliance with medication regimen for other reason
CPT/HCPCS: 36245; 36569; 71045; 72141; 72146; 72148; 73723; 76937; 77012; 80048; 80053; 80202; 80307; 81001; 82962; 83605; 83690; 83735; 84484; 85025; 85610; 86140; 87040; 87070; 87205; 93005; 97110; 97116; 97162; 97166; 97530; 97535; 99285; J0696; J1100; J1200; J1644; J1815; J1885; J2250; J2270; J2543; J3010; J3490; J7030; J7040; J7060; 36415-L1; 36415-TC

== ENCOUNTER 2025-07-30 14:53 | Inpatient (IN) | payer OTHER ==
[~2025-07-30] VITALS: Ht 162.6 cm; Wt 100.0 kg
[~2025-07-30 14:53] MED LIST: ACET-2247 PO; AMLO-517 PO; ARIP20TA PO; ATOR10TA69 PO; CEFT2VIA60 IM; DULO30CA62 PO; EMPA10TA3 PO; FAMO20 PO; IBUP-2492 PO; INSREG SQ; LACO100T14 PO; LEVA15HF3 PO; LEVE100S7 PO; LIDO15CR15 TP; METF-81 PO; MIRT-149 PO; SEMA2PEN SQ; SIME80TA12 PO; TAMS0.4C94 PO
[2025-07-30] MEDS ORDERED: ONDANSETRON HCL 4 MG/2 ML VIAL IVP PRN (15:45)
[2025-07-30] MEDS ORDERED: OxyCODONE HCL/ACETAMINOPHEN 5-325 MG TABLET PO PRN (15:45)
[2025-07-30] MEDS ORDERED: MAGNESIUM HYDROXIDE SUSPENSION 30 ML UDCUP PO PRN (15:45)
[2025-07-30] MEDS ORDERED: ZOLPIDEM TARTRATE 5 MG TABLET PO PRN (15:45)
[2025-07-30] MEDS ORDERED: BISACODYL 10 MG RECTAL RECTAL SUPPOSITORY PR PRN (15:45)
[2025-07-30] MEDS ORDERED: ACETAMINOPHEN 325 MG TABLET PO PRN (15:45)
[2025-07-30] MEDS ORDERED: DEXTROSE 50%-WATER 25 GM/50 ML SYRINGE IVP PRN (15:45)
[2025-07-30] MEDS: HEPARIN SODIUM,PORCINE 5,000 UNITS/ML VIAL SQ SCH (16:00)
[2025-07-30] MEDS ORDERED: LORazepam 2 MG/ML VIAL IVP PRN (16:00)
[2025-07-30] MEDS: OxyCODONE HCL/ACETAMINOPHEN 5-325 MG TABLET PO PRN (16:50)
[2025-07-30 17:10] LABS: GLUCOMETER DEV NAME(LOC) ER.7; GLUCOSE,POINT OF CARE 91 MG/DL (70-110)
[2025-07-30 17:51] LABS: GLUCOMETER DEV NAME(LOC) ERT.7; GLUCOSE,POINT OF CARE 118 MG/DL (70-110)
[2025-07-30 17:52] LABS: PLATELET COUNT (AUTO) 170 K/uL (150-450); RED BLOOD CELL COUNT(AUTO) 5.08 MIL/uL (4.50-5.90); RED CELL DISTRIBUTION WIDTH 14.0 % (11.5-14.5); WHITE BLOOD COUNT (AUTO) 7.6 K/uL (4.5-11.0)
[2025-07-30 17:56] LABS: CALCIUM, TOTAL 8.6 mg/dL (8.8-10.5); CREATININE 0.72 mg/dL (0.60-1.30); GLOMERULAR FILTR. RATE CALC > 60 mL/min (>60); GLUCOSE,RANDOM 83 mg/dL (70-110); SODIUM SERUM 145 mmol/L (136-145); UREA NITROGEN, BLOOD 8 mg/dL (7-18)
[2025-07-30] MEDS: DOCUSATE SODIUM 100 MG CAPSULE PO SCH (20:30)
[2025-07-30] MEDS: TAMSULOSIN HCL 0.4 MG CAPSULE PO SCH (20:30)
[2025-07-30] MEDS: MIRTAZAPINE 30 MG TABLET PO SCH (21:00)
[2025-07-30 21:20] VITALS: BP 149/92; PULSE 64; RESP 20; TEMP 97.5; O2SAT 97
[2025-07-30] MEDS: POTASSIUM CHLORIDE 20 MEQ ER TABLET PO ONE (22:00)
[2025-07-30] MEDS: INSULIN GLARGINE,HUM.REC.ANLOG 100 UNITS/ML SQ SCH (22:06)
[2025-07-30] MEDS: INSULIN LISPRO 100 UNITS/ML SQ PRN (22:07)
[2025-07-30] MEDS ORDERED: POTASSIUM CHL 10 MEQ/WATER 50 ML IV PRN (22:30)
[2025-07-30] MEDS ORDERED: POTASSIUM CHLORIDE 20 MEQ ER TABLET PO PRN (22:30)
[2025-07-31] MEDS: LACOSAMIDE 100 MG TABLET PO SCH (00:50)
[2025-07-31 05:51] VITALS: BP 124/88; PULSE 65; RESP 20; TEMP 97.2; O2SAT 97
[2025-07-31 07:41] LABS: GLUCOMETER DEV NAME(LOC) 6S.2; GLUCOSE,POINT OF CARE 134 MG/DL (70-110)
[2025-07-31 07:41] LABS: GLUCOMETER DEV NAME(LOC) 6S.2; GLUCOSE,POINT OF CARE 180 MG/DL (70-110)
[2025-07-31 08:00] VITALS: BP 148/89; PULSE 97; RESP 20; TEMP 97.5; O2SAT 100
[2025-07-31] MEDS: FAMOTIDINE 20 MG TABLET PO SCH (09:08)
[2025-07-31] MEDS: INSULIN GLARGINE,HUM.REC.ANLOG 100 UNITS/ML SQ SCH (09:16)
[2025-07-31 15:21] LABS: GLUCOMETER DEV NAME(LOC) 4E.2; GLUCOSE,POINT OF CARE 155 MG/DL (70-110)
[2025-07-31 19:30] LABS: GLUCOMETER DEV NAME(LOC) 6S.2; GLUCOSE,POINT OF CARE 101 MG/DL (70-110)
[2025-07-31 19:40] VITALS: BP 124/90; PULSE 62; RESP 18; TEMP 97.9; O2SAT 99
[2025-08-01 05:16] LABS: GLUCOMETER DEV NAME(LOC) 6N.1C; GLUCOSE,POINT OF CARE 125 MG/DL (70-110)
[2025-08-01 05:30] VITALS: BP 133/90; PULSE 69; RESP 18; TEMP 97.9; O2SAT 97
[2025-08-01 08:00] VITALS: BP 136/89; PULSE 76; RESP 19; TEMP 97.9; O2SAT 99
[2025-08-01 10:25] LABS: GLUCOMETER DEV NAME(LOC) 4E.2; GLUCOSE,POINT OF CARE 100 MG/DL (70-110)
[2025-08-01] MEDS ORDERED: GADOTERATE MEGLUMINE 10 MMOL/20 ML VIAL IVP ONE ×2 (15:23)
[2025-08-01] MEDS: LORazepam 2 MG/ML VIAL IVP ONE (16:27)
[2025-08-01 21:03] LABS: APPEARANCE,URINE CLEAR (CLEAR); GLUCOSE, URINE (UA) NEGATIVE (NEGATIVE); LEUKOCYTE ESTERASE ,URINE NEGATIVE (NEGATIVE); NITRATE,URINE NEGATIVE (NEGATIVE); OCCULT BLOOD,URINE NEGATIVE (NEGATIVE); SPECIFIC GRAVITIY, URINE 1.023 (1.003-1.030)
[2025-08-01 22:51] LABS: GLUCOMETER DEV NAME(LOC) 6S.2; GLUCOSE,POINT OF CARE 133 MG/DL (70-110)
[2025-08-02 01:24] VITALS: BP 150/89; PULSE 71; RESP 20; TEMP 98.2; O2SAT 100
[2025-08-02 01:53] VITALS: BP 150/89; PULSE 71; RESP 18; TEMP 98.2; O2SAT 100
[2025-08-02 04:39] VITALS: BP 132/82; PULSE 66; RESP 20; TEMP 97.5; O2SAT 99
[2025-08-02 07:17] LABS: GLUCOMETER DEV NAME(LOC) 6N.1C; GLUCOSE,POINT OF CARE 111 MG/DL (70-110)
[2025-08-02 08:06] LABS: GLUCOMETER DEV NAME(LOC) 6N.1C; GLUCOSE,POINT OF CARE 101 MG/DL (70-110)
[2025-08-02] MEDS: MORPHINE SULFATE 2 MG/ML SYRINGE IVP PRN (09:31)
[2025-08-02] MEDS ORDERED: MIDAZOLAM HCL 2 MG/2 ML VIAL ONE (09:57)
[2025-08-02] MEDS ORDERED: FentaNYL CITRATE PF 100 MCG/2 ML VIAL ONE (09:57)
[2025-08-02] MEDS ORDERED: LIDOCAINE/PF 1% 30 ML VIAL ONE (09:58)
[2025-08-02 13:36] LABS: GLUCOMETER DEV NAME(LOC) 6S.2; GLUCOSE,POINT OF CARE 116 MG/DL (70-110)
[2025-08-02 20:06] VITALS: BP 140/98; PULSE 94; RESP 19; TEMP 98.1; O2SAT 96
[2025-08-02 23:00] LABS: GLUCOMETER DEV NAME(LOC) 6S.2; GLUCOSE,POINT OF CARE 123 MG/DL (70-110)
[2025-08-02 23:00] LABS: GLUCOMETER DEV NAME(LOC) 6S.2; GLUCOSE,POINT OF CARE 153 MG/DL (70-110)
[2025-08-03 04:10] VITALS: BP 118/77; PULSE 85; RESP 18; TEMP 98.1; O2SAT 97
[2025-08-03 06:36] LABS: GLUCOMETER DEV NAME(LOC) 6N.1C; GLUCOSE,POINT OF CARE 179 MG/DL (70-110)
[2025-08-03 09:04] VITALS: BP 113/68; PULSE 70; RESP 18; TEMP 98.2; O2SAT 100
[2025-08-03 16:11] LABS: GLUCOMETER DEV NAME(LOC) 4E.2; GLUCOSE,POINT OF CARE 137 MG/DL (70-110)
[2025-08-03 19:01] LABS: GLUCOMETER DEV NAME(LOC) 6N.1C; GLUCOSE,POINT OF CARE 148 MG/DL (70-110)
[2025-08-03 20:36] VITALS: BP 124/95; PULSE 77; RESP 18; TEMP 97.5; O2SAT 97
[2025-08-04 05:26] VITALS: BP 119/83; PULSE 83; RESP 18; TEMP 97.7; O2SAT 96
[2025-08-04 06:41] LABS: GLUCOMETER DEV NAME(LOC) 6N.1C; GLUCOSE,POINT OF CARE 204 MG/DL (70-110)
[2025-08-04 06:41] LABS: GLUCOMETER DEV NAME(LOC) 6N.1C; GLUCOSE,POINT OF CARE 169 MG/DL (70-110)
[2025-08-04 08:10] VITALS: BP 114/78; PULSE 83; RESP 17; TEMP 98.1; O2SAT 97
[2025-08-04 19:23] VITALS: BP 110/80; PULSE 66; RESP 18; TEMP 98.2; O2SAT 96
[2025-08-04 20:01] LABS: GLUCOMETER DEV NAME(LOC) 4E.2; GLUCOSE,POINT OF CARE 205 MG/DL (70-110)
[2025-08-04 20:01] LABS: GLUCOMETER DEV NAME(LOC) 4E.2; GLUCOSE,POINT OF CARE 212 MG/DL (70-110)
[2025-08-05 04:31] VITALS: BP 130/88; PULSE 74; RESP 18; TEMP 97.9; O2SAT 100
[2025-08-05 06:54] LABS: PLATELET COUNT (AUTO) 176 K/uL (150-450); RED BLOOD CELL COUNT(AUTO) 4.98 MIL/uL (4.50-5.90); RED CELL DISTRIBUTION WIDTH 13.6 % (11.5-14.5); WHITE BLOOD COUNT (AUTO) 7.2 K/uL (4.5-11.0)
[2025-08-05 07:11] LABS: ASPARTATE AMINOTRANSFERASE 22 U/L (15-37); CALCIUM, TOTAL 8.6 mg/dL (8.8-10.5); CREATININE 0.81 mg/dL (0.60-1.30); GLOMERULAR FILTR. RATE CALC > 60 mL/min (>60); GLUCOSE,RANDOM 185 mg/dL (70-110); SODIUM SERUM 138 mmol/L (136-145); TOTAL PROTEIN, SERUM 7.1 g/dL (6.4-8.2); UREA NITROGEN, BLOOD 11 mg/dL (7-18)
[2025-08-05 09:00] VITALS: BP 129/84; PULSE 76; RESP 19; TEMP 97.5; O2SAT 99
[2025-08-05 09:11] LABS: GLUCOMETER DEV NAME(LOC) 4E.2; GLUCOSE,POINT OF CARE 192 MG/DL (70-110)
[2025-08-05 09:15] LABS: GLUCOMETER DEV NAME(LOC) 6S.2; GLUCOSE,POINT OF CARE 246 MG/DL (70-110)
[2025-08-05] MEDS ORDERED: GADOTERATE MEGLUMINE 10 MMOL/20 ML VIAL IVP ONE (17:51)
[2025-08-05 19:41] LABS: GLUCOMETER DEV NAME(LOC) 4E.2; GLUCOSE,POINT OF CARE 168 MG/DL (70-110)
[2025-08-05 19:41] LABS: GLUCOMETER DEV NAME(LOC) 4E.2; GLUCOSE,POINT OF CARE 221 MG/DL (70-110)
[2025-08-05 20:40] VITALS: BP 126/81; PULSE 76; RESP 20; TEMP 98.1; O2SAT 98
[2025-08-05 21:06] LABS: GLUCOMETER DEV NAME(LOC) 6N.1C; GLUCOSE,POINT OF CARE 267 MG/DL (70-110)
[2025-08-06 04:28] VITALS: BP 114/85; PULSE 75; RESP 20; TEMP 97.7; O2SAT 97
[2025-08-06 07:30] LABS: GLUCOMETER DEV NAME(LOC) 6S.2; GLUCOSE,POINT OF CARE 246 MG/DL (70-110)
[2025-08-06 08:00] VITALS: BP 150/88; PULSE 84; RESP 20; TEMP 98.1; O2SAT 98
[2025-08-06] MEDS: INSULIN REGULAR, HUMAN 100 UNITS/ML SQ PRN (12:06)
[2025-08-06] MEDS: *CLINICAL-CEFEPIME DOSING CLINICAL ONE (12:08)
[2025-08-06] MEDS ORDERED: SODIUM CHLORIDE 0.9% 250 ML IV ONE (13:30)
[2025-08-06] MEDS: CEFEPIME HCL 2 GM in DEXTROSE 5%-WATER 50 ML IV SCH (13:43)
[2025-08-06] MEDS: MORPHINE SULFATE 4 MG/ML VIAL IVP PRN (13:46)
[2025-08-06] MEDS ORDERED: GADOTERATE MEGLUMINE 10 MMOL/20 ML VIAL IVP ONE (14:17)
[2025-08-06] MEDS: VANCOMYCIN 1.75GM/WATER(PEG) 350 ML IV ONE (15:42)
[2025-08-06 19:31] LABS: GLUCOMETER DEV NAME(LOC) 6N.1C; GLUCOSE,POINT OF CARE 211 MG/DL (70-110)
[2025-08-06 19:31] LABS: GLUCOMETER DEV NAME(LOC) 6N.1C; GLUCOSE,POINT OF CARE 279 MG/DL (70-110)
[2025-08-06 20:02] VITALS: BP 146/86; PULSE 75; RESP 18; TEMP 98.2; O2SAT 98
[2025-08-06 21:01] LABS: GLUCOMETER DEV NAME(LOC) 6N.1C; GLUCOSE,POINT OF CARE 276 MG/DL (70-110)
[2025-08-07] MEDS ORDERED: VANCOMYCIN 1.25 GM/WATER(PEG) 250 ML IV SCH
[2025-08-07 05:56] VITALS: BP 135/88; PULSE 83; RESP 18; TEMP 98.4; O2SAT 98
[2025-08-07 06:37] LABS: CALCIUM, TOTAL 9.1 mg/dL (8.8-10.5); CREATININE 0.68 mg/dL (0.60-1.30); GLOMERULAR FILTR. RATE CALC > 60 mL/min (>60); GLUCOSE,RANDOM 314 mg/dL (70-110); SODIUM SERUM 136 mmol/L (136-145); UREA NITROGEN, BLOOD 8 mg/dL (7-18)
[2025-08-07 06:56] LABS: GLUCOMETER DEV NAME(LOC) 6N.1C; GLUCOSE,POINT OF CARE 328 MG/DL (70-110)
[2025-08-07 08:57] VITALS: BP 138/86; PULSE 84; RESP 18; TEMP 98; O2SAT 99
[2025-08-07 20:00] VITALS: BP 121/75; PULSE 96; RESP 18; TEMP 98.2; O2SAT 97
[2025-08-07 20:01] LABS: GLUCOMETER DEV NAME(LOC) 6N.1C; GLUCOSE,POINT OF CARE 278 MG/DL (70-110)
[2025-08-07 20:01] LABS: GLUCOMETER DEV NAME(LOC) 6N.1C; GLUCOSE,POINT OF CARE 342 MG/DL (70-110)
[2025-08-07 20:41] LABS: GLUCOMETER DEV NAME(LOC) 6S.2; GLUCOSE,POINT OF CARE 397 MG/DL (70-110)
[2025-08-08 04:00] VITALS: BP 109/68; PULSE 85; RESP 18; TEMP 98.2; O2SAT 96
[2025-08-08 06:55] LABS: GLUCOMETER DEV NAME(LOC) 6S.2; GLUCOSE,POINT OF CARE 318 MG/DL (70-110)
[2025-08-08 08:39] LABS: CALCIUM, TOTAL 8.8 mg/dL (8.8-10.5); CREATININE 0.58 mg/dL (0.60-1.30); GLOMERULAR FILTR. RATE CALC > 60 mL/min (>60); GLUCOSE,RANDOM 302 mg/dL (70-110); SODIUM SERUM 134 mmol/L (136-145); UREA NITROGEN, BLOOD 7 mg/dL (7-18)
[2025-08-08 08:50] VITALS: BP 96/66; PULSE 76; RESP 18; TEMP 98.1; O2SAT 97
[2025-08-08] MEDS: INSULIN GLARGINE,HUM.REC.ANLOG 100 UNITS/ML SQ SCH (12:17)
[2025-08-08] MEDS ORDERED: GADOTERATE MEGLUMINE 10 MMOL/20 ML VIAL IVP ONE (14:12)
[2025-08-08 14:40] LABS: GLUCOMETER DEV NAME(LOC) 6S.2; GLUCOSE,POINT OF CARE 360 MG/DL (70-110)
[2025-08-08 19:56] VITALS: BP 135/85; PULSE 80; RESP 18; TEMP 97.9; O2SAT 98
[2025-08-08 22:15] LABS: GLUCOMETER DEV NAME(LOC) 4E.2; GLUCOSE,POINT OF CARE 324 MG/DL (70-110)
[2025-08-08 22:15] LABS: GLUCOMETER DEV NAME(LOC) 4E.2; GLUCOSE,POINT OF CARE 329 MG/DL (70-110)
[2025-08-09 04:24] VITALS: BP 130/85; PULSE 81; RESP 18; TEMP 97.7; O2SAT 99
[2025-08-09 08:19] VITALS: BP 108/73; PULSE 71; RESP 20; TEMP 98; O2SAT 97
[2025-08-09 20:10] VITALS: BP 146/82; PULSE 81; RESP 18; TEMP 98.1; O2SAT 94
[2025-08-09 23:31] LABS: GLUCOMETER DEV NAME(LOC) 4E.2; GLUCOSE,POINT OF CARE 313 MG/DL (70-110)
[2025-08-09 23:31] LABS: GLUCOMETER DEV NAME(LOC) 4E.2; GLUCOSE,POINT OF CARE 298 MG/DL (70-110)
[2025-08-09 23:31] LABS: GLUCOMETER DEV NAME(LOC) 6S.2; GLUCOSE,POINT OF CARE 371 MG/DL (70-110)
[2025-08-10] MEDS: CHLORHEXIDINE GLUCONATE 2% TOWELETTE [2'S/6'S] TP ONE (05:00)
[2025-08-10] MEDS: ETHYL ALCOHOL 62% ANTISEPTIC NASAL SANITIZER 0.6 ML AMPUL NASAL ONE (05:00)
[2025-08-10] MEDS: RINGERS SOLUTION,LACTATED 1,000 ML IV ONE (05:00)
[2025-08-10 05:12] VITALS: BP 130/77; PULSE 101; RESP 18; TEMP 97.3; O2SAT 98
[2025-08-10 08:00] LABS: GLUCOMETER DEV NAME(LOC) 6S.2; GLUCOSE,POINT OF CARE 338 MG/DL (70-110)
[2025-08-10 08:13] VITALS: BP 103/61; PULSE 76; RESP 18; TEMP 98; O2SAT 97
[2025-08-10] MEDS ORDERED: DOCU-385 PO (11:51)
[2025-08-10] MEDS ORDERED: INSLAN SQ (11:52)
[2025-08-10] MEDS ORDERED: MAGN-169 PO (11:54)
[2025-08-10] MEDS ORDERED: TRAM50TA5 PO (11:55)
[2025-08-12 04:06] LABS: QUANTIFERON+, Nil Value 0.03 IU/mL; QUANTIFERON+,Mitogen Value >10.00 IU/mL; QUANTIFERON+,TB1 Antigen Value 0.03 IU/mL; QUANTIFERON+,TB2 Antigen Value 0.04 IU/mL; QUANTIFERON, TB GOLD PLUS Negative (Negative)
== END 2025-08-10 14:25 | DRG 478 ==
LOC: EMS 14:53 → EDH 15:38 → 6N 21:37 → 6S 07-31 17:40
PROVIDERS: ADMIT Internal Medicine; ATTEND Internal Medicine
PROC: 0QB03ZX Excision of Lumbar Vertebra, Percutaneous Approach, Diagnostic (ICD-10-PCS; principal; 2025-08-02)
PROC: 02HV33Z Insertion of Infusion Device into Superior Vena Cava, Percutaneous Approach (ICD-10-PCS; 2025-08-07)
PROC: B548ZZA Ultrasonography of Superior Vena Cava, Guidance (ICD-10-PCS; 2025-08-07)
DX: M46.46 Discitis, unspecified, lumbar region (principal); G82.20 Paraplegia, unspecified; M46.26 Osteomyelitis of vertebra, lumbar region; E11.69 Type 2 diabetes mellitus with other specified complication; E66.9 Obesity, unspecified; N40.0 Benign prostatic hyperplasia without lower urinary tract symptoms; I10 Essential (primary) hypertension; E11.40 Type 2 diabetes mellitus with diabetic neuropathy, unspecified; F99 Mental disorder, not otherwise specified; J45.909 Unspecified asthma, uncomplicated; G40.909 Epilepsy, unspecified, not intractable, without status epilepticus; Z53.9 Procedure and treatment not carried out, unspecified reason; Z68.37 Body mass index [BMI] 37.0-37.9, adult; Z83.3 Family history of diabetes mellitus; Z91.199 Patient's noncompliance with other medical treatment and regimen due to unspecified reason; Z98.1 Arthrodesis status
CPT/HCPCS: 36245; 36569; 70450; 70544; 70553; 71045; 72148; 72156; 72157; 72158; 73723; 76937; 77012; 80048; 80053; 81003; 82962; 84132; 85025; 85610; 85651; 86140; 86480; 86682; 87015; 87040; 87070; 87101; 87205; 87206; 87389; 97110; 97116; 97162; 97530; 99285; J0692; J1644; J1815; J2060; J2250; J2270; J3010; J3490; J7050; J7060; 36415-L1; 36415-TC

== ENCOUNTER 2025-08-12 19:54 | Inpatient (IN) | payer OTHER ==
[~2025-08-12] VITALS: Ht 160 cm; Wt 90.0 kg
[~2025-08-12 19:54] MED LIST changes: -CEFT2VIA60 IM; +DOCU-385 PO; +INSLAN SQ; +MAGN-169 PO; +TRAM50TA5 PO
[2025-08-12 21:40] LABS: GLUCOMETER DEV NAME(LOC) ER.7; GLUCOSE,POINT OF CARE 223 MG/DL (70-110)
[2025-08-12 22:44] LABS: PLATELET COUNT (AUTO) 156 K/uL (150-450); RED BLOOD CELL COUNT(AUTO) 4.24 MIL/uL (4.50-5.90); RED CELL DISTRIBUTION WIDTH 13.8 % (11.5-14.5); WHITE BLOOD COUNT (AUTO) 8.3 K/uL (4.5-11.0)
[2025-08-12] MEDS ORDERED: MIRTAZAPINE 30 MG TABLET PO ONE (22:45)
[2025-08-12] MEDS: MIRTAZAPINE 15 MG TABLET PO ONE (22:51)
[2025-08-12 22:52] LABS: CALCIUM, TOTAL 8.6 mg/dL (8.8-10.5); CREATININE 0.53 mg/dL (0.60-1.30); GLOMERULAR FILTR. RATE CALC > 60 mL/min (>60); GLUCOSE,RANDOM 220 mg/dL (70-110); SODIUM SERUM 138 mmol/L (136-145); UREA NITROGEN, BLOOD 13 mg/dL (7-18)
[2025-08-12 23:02] LABS: LACTIC ACID 1.4 mmol/L (0.4-2.0); TROPONIN I-HIGH SENSITIVITY 8 ng/L (<76)
[2025-08-13] MEDS ORDERED: DEXTROSE 50%-WATER 25 GM/50 ML SYRINGE IVP PRN
[2025-08-13] MEDS ORDERED: MAGNESIUM HYDROXIDE SUSPENSION 30 ML UDCUP PO PRN
[2025-08-13] MEDS ORDERED: ACETAMINOPHEN 325 MG TABLET PO PRN
[2025-08-13] MEDS ORDERED: ONDANSETRON HCL 4 MG/2 ML VIAL IVP PRN
[2025-08-13] MEDS ORDERED: ZOLPIDEM TARTRATE 5 MG TABLET PO PRN
[2025-08-13] MEDS: HEPARIN SODIUM,PORCINE 5,000 UNITS/ML VIAL SQ SCH (00:09)
[2025-08-13 04:00] VITALS: BP 114/80; PULSE 73; RESP 18; TEMP 97.3; O2SAT 99
[2025-08-13] MEDS: OxyCODONE HCL/ACETAMINOPHEN 5-325 MG TABLET PO PRN (04:54)
[2025-08-13 08:08] VITALS: BP 127/77; PULSE 73; RESP 20; TEMP 98.1; O2SAT 98
[2025-08-13] MEDS: DOCUSATE SODIUM 100 MG CAPSULE PO SCH (08:11)
[2025-08-13] MEDS: FAMOTIDINE 20 MG TABLET PO SCH (08:11)
[2025-08-13] MEDS: INSULIN LISPRO 100 UNITS/ML SQ PRN (08:34)
[2025-08-13] MEDS: LACOSAMIDE 100 MG TABLET PO SCH (11:26)
[2025-08-13 11:30] LABS: GLUCOMETER DEV NAME(LOC) 4E.2; GLUCOSE,POINT OF CARE 181 MG/DL (70-110)
[2025-08-13 11:45] LABS: GLUCOMETER DEV NAME(LOC) 4E.2; GLUCOSE,POINT OF CARE 235 MG/DL (70-110)
[2025-08-13] MEDS ORDERED: ACETAMINOPHEN/CODEINE 300-30 MG TABLET PO PRN (12:45)
[2025-08-13] MEDS ORDERED: INSU100V SQ (13:18)
[2025-08-13] MEDS: ACETAMINOPHEN/CODEINE 300-30 MG TABLET PO PRN (15:07)
[2025-08-13 16:00] VITALS: BP 126/76; PULSE 64; RESP 20; TEMP 98.1; O2SAT 100
[2025-08-13] MEDS ORDERED: MIRTAZAPINE 30 MG TABLET PO SCH (21:00)
[2025-08-13] MEDS ORDERED: TAMSULOSIN HCL 0.4 MG CAPSULE PO SCH (21:00)
[2025-08-13] MEDS ORDERED: INSULIN GLARGINE,HUM.REC.ANLOG 100 UNITS/ML SQ SCH (21:00)
[2025-08-14 12:05] LABS: GLUCOMETER DEV NAME(LOC) 6S.2; GLUCOSE,POINT OF CARE 185 MG/DL (70-110)
== END 2025-08-13 20:05 | DRG 552 ==
LOC: EMS 19:54 → EDH 23:52 → 6S 08-13 03:52
PROVIDERS: ADMIT Internal Medicine; ATTEND Internal Medicine
DX: M46.46 Discitis, unspecified, lumbar region (principal); E11.65 Type 2 diabetes mellitus with hyperglycemia; E66.01 Morbid (severe) obesity due to excess calories; G40.909 Epilepsy, unspecified, not intractable, without status epilepticus; F99 Mental disorder, not otherwise specified; N40.0 Benign prostatic hyperplasia without lower urinary tract symptoms; J45.909 Unspecified asthma, uncomplicated; G89.29 Other chronic pain; I10 Essential (primary) hypertension; Z68.35 Body mass index [BMI] 35.0-35.9, adult; Z83.3 Family history of diabetes mellitus; Z79.4 Long term (current) use of insulin; Z79.899 Other long term (current) drug therapy
CPT/HCPCS: 80048; 82009; 82962; 83605; 83690; 84484; 85025; 99285; G0378; J1644; J1815

== ENCOUNTER → 2025-08-24 | Outpatient (CLI) | payer OTHER ==
[~2025-08-24] MED LIST changes: -IBUP-2492 PO; -INSREG SQ; +INSU100V SQ; -METF-81 PO; -TRAM50TA5 PO
== END | disposition home or self-care (01) ==
LOC: TELEHEALTH 09:02
PROVIDERS: ATTEND Neurological Surgery
DX: M46.46 Discitis, unspecified, lumbar region (principal)